=== PATIENT | female | born 1995 | race Caucasian/White ===

== ENCOUNTER 2017-12-09 16:55 | Emergency (ER) | payer OTHER ==
[2017-12-09] MEDS ORDERED: Ibuprofen 600 MG TAB ONE (17:36)
--- NOTE | 2017-12-09 18:10 | RAD ---
RIGHT ANKLE THREE VIEWS: 12/09/17 HISTORY: Fall. Right ankle injury. FINDINGS: Ankle mortise is intact. No acute fracture or dislocation. IMPRESSION: No acute osseous abnormalities are demonstrated. POS: [facility]
--- NOTE | 2017-12-09 18:11 | RAD ---
RIGHT FOOT THREE VIEWS 12/09/17 HISTORY: Right foot injury. FINDINGS: Lisfranc joint alignment is anatomic. Pes planus is apparent on the lateral view. No acute fracture o r dislocation. IMPRESSION: No acute osseous abnormalities are demonstrated. POS: [facility]
== END 2017-12-09 19:21 | disposition home or self-care (01) ==
LOC: SCSER 16:55
DX: S93.401A Sprain of unspecified ligament of right ankle, initial encounter (principal); E28.2 Polycystic ovarian syndrome; F41.9 Anxiety disorder, unspecified; Z79.84 Long term (current) use of oral hypoglycemic drugs; Z79.899 Other long term (current) drug therapy; W10.9XXA Fall (on) (from) unspecified stairs and steps, initial encounter

== ENCOUNTER 2019-09-10 11:55 | Emergency (ER) | payer OTHER | END 2019-09-10 12:06 | disposition left against medical advice (07) | LOC: ERS 11:55 | DX: Z53.21 Procedure and treatment not carried out due to patient leaving prior to being seen by health care provider (principal) ==